=== PATIENT | female | born 1935 | race Caucasian/White ===

== ENCOUNTER 2018-02-02 16:41 | Emergency (ER) | payer BC, MEDICARE, OTHER ==
--- OUTSIDE RECORDS SUMMARY | 2018-02-02 17:17 | XMS REPORT ---
:1935 External Reference #:[id number] Author Organization [facility] Address [address] [place] [address] Phone [phone] Care Team Providers Name Role Phone Ruben Sharpe M.D. Care Team Information Speed Operator Unavailable Vicente Meza M.D. Primary Care Physician Unavailable Payers Type Date Identification Numbers Payment Provider Subscriber Medicare Primary Effective: Policy Number: Medicare Part B Federica Saldana 2002 [id number] PayID: [id number] [place] [address] Medinew bavaria Part B Policy Number: [id number] [facility] Alan Saldana PayID: [id number] [address] [place] [address] Problems Date Description Provider Status Onset: 05/05/2015 End-stage renal disease Vincent Petty M.D. Active Onset: 05/05/2015 Coronary arteriosclerosis Vincent Petty M.D. Active Onset: 05/05/2015 Congestive heart failure Vincent Petty M.D. Active Onset: 05/05/2015 Anemia Vincent Petty M.D. Active Onset: 05/05/2015 Atrial fibrillation Vincent Petty M.D. Active Onset: 05/05/2015 Essential hypertension Vincent Petty M.D. Active Onset: 05/06/2015 End-stage renal disease Active Family History Date Family Member(s) Problem(s) Comments : (age 93 Years) Father due to Bladder Cancer : (age 95 Years) Mother due to Congestive Heart Failure Social History Type Date Description Comments ETOH Use Rarely consumes alcohol Smoking 09/21/2017 Patient has never smoked Allergies, Adverse Reactions, Alerts Date Description Reaction Status Severity Comments 05/05/2015 Penicillins Urticaria active 05/05/2015 Tape skin reaction active 05/05/2015 Calcium Channel Blockers edema active 05/05/2015 Procardia Edema active 05/05/2015 Iodine Urticaria, Hives active 05/06/2015 Shellfish-derived Products Urticaria active Medications Medication Date Status Form Strength Qnty SIG Indications Ordering Provider Benadryl Active Capsules 25mg 2caps 50mg by Jing Vazquez M.D. 01/24/18 @ 8am Isabella-Jacinto Active Tablets every day Vincent Petty M.D. Prednisone Active Tablets 50mg 3tabs 50mg Jing Bhagat 01/23/18 @ Emely Vazquez 8:00pm 50mg on 01/24/18 @ 2:00am 50mg on 01/24/18 @ 8:00am Sensipar Active Tablets 30mg 2 tabs qd Unknown 000 Warfarin Active Tablets 2.5mg as directed Derrick, Sodium 000 Emely Zhang Renvela Active Tablets 800mg 2 tablets Unknown 000 three times a day Midodrine HCL Active Tablets 5mg 3 X weekly Sharpe, 000 Emely Miranda Vitamin D3 Active 3 x weekly Unknown 000 at dialysis Benadryl Hx Capsules 25mg 2caps 50mg by Jing Mcmullen 017 - zahra Vazquez M.D. 08/09/17 @ 018 0830 Benadryl Hx Capsules 25mg 2caps 50mg by Vincent Bhagat - zahra Petty, 03/11/16 @ Emely 018 11:45am Torsemide Hx Tablets 20mg qd Unknown 000 - 016 Metoprolol Hx Tablets 25mg q hs Unknown Tartrate 000 - 016 Calcitriol Hx Capsules 0.25mcg tues/thurs Sharpe, 000 - Ruben, MAfshan 016 Vitamin D Hx Capsules [id number] q week Unknown (Ergocalcifer 000 - ol) 016 Vital Signs Date Vital Result Comment 01/24/2018 BP Systolic Left Arm 113 mmHg BP Diastolic Left Arm 71 mmHg Heart Rate 52 /min Body Temperature 97.0 F Respiratory Rate 16 /min Height 62 inches 5'2" Weight 171.50 lb Weight in kg's 77.8 O2 % BldC Oximetry 98 % BMI (Body Mass Index) 31.4 kg/m2 Pain Level 0 01/10/2018 BP Systolic Left Arm 95 mmHg BP Diastolic Left Arm 69 mmHg Heart Rate 55 /min Body Temperature 97.0 F Respiratory Rate 16 /min Height 62 inches 5'2" Weight 168.00 lb Weight in kg's 76.205 O2 % BldC Oximetry 99 % BMI (Body Mass Index) 30.7 kg/m2 Pain Level 0 11/29/2017 BP Systolic Left Arm 100 mmHg BP Diastolic Left Arm 66 mmHg Heart Rate 64 /min Height 62 inches 5'2" Weight 169.00 lb Weight in kg's 76.658 BMI (Body Mass Index) 30.9 kg/m2 09/21/2017 BP Systolic Left Arm 110 mmHg BP Diastolic Left Arm 70 mmHg Heart Rate 68 /min Height 62 inches 5'2" Weight 167.56 lb Weight in kg's 76 BMI (Body Mass Index) 30.6 kg/m2 08/09/2017 BP Systolic Left Arm 123 mmHg BP Diastolic Left Arm 70 mmHg Heart Rate 65 /min Body Temperature 97.0 F Respiratory Rate 16 /min Height 62 inches 5'2" Weight 169.31 lb Weight in kg's 76.8 O2 % BldC Oximetry 100 % BMI (Body Mass Index) 31.0 kg/m2 Pain Level 0 07/12/2017 BP Systolic Left Arm 107 mmHg BP Diastolic Left Arm 70 mmHg Heart Rate 66 /min Body Temperature 97.0 F Respiratory Rate 16 /min Height 62 inches 5'2" Weight 168.62 lb Weight in kg's 76.5 O2 % BldC Oximetry 97 % BMI (Body Mass Index) 30.8 kg/m2 Pain Level 0 06/28/2017 BP Systolic Left Arm 100 mmHg BP Diastolic Left Arm 60 mmHg Heart Rate 68 /min Height 62 inches 5'2" Weight 169.75 lb Weight in kg's 77 BMI (Body Mass Index) 31.0 kg/m2 06/16/2017 BP Systolic Left Arm 120 mmHg BP Diastolic Left Arm 70 mmHg Heart Rate 72 /min Height 62 inches 5'2" Weight 167.56 lb Weight in kg's 76 BMI (Body Mass Index) 30.6 kg/m2 06/03/2017 BP Systolic Left Arm 100 mmHg BP Diastolic Left Arm 70 mmHg Heart Rate 72 /min Height 62 inches 5'2" Weight 168.44 lb Weight in kg's 76.4 BMI (Body Mass Index) 30.8 kg/m2 04/21/2017 BP Systolic Left Arm 120 mmHg BP Diastolic Left Arm 74 mmHg Heart Rate 61 /min Body Temperature 97.0 F Respiratory Rate 16 /min Height 62 inches 5'2" Weight 168.62 lb Weight in kg's 76.5 O2 % BldC Oximetry 100 % BMI (Body Mass Index) 30.8 kg/m2 Pain Level 0 04/12/2017 BP Systolic Left Arm 91 mmHg BP Diastolic Left Arm 65 mmHg Heart Rate 60 /min Body Temperature 97.0 F Respiratory Rate 16 /min Height 62 inches 5'2" Weight 168.62 lb Weight in kg's 76.488 O2 % BldC Oximetry 95 % BMI (Body Mass Index) 30.8 kg/m2 Pain Level 0 12/07/2016 BP Systolic Left Arm 99 mmHg BP Diastolic Left Arm 64 mmHg Heart Rate 54 /min Body Temperature 96.0 F Respiratory Rate 12 /min Height 62 inches 5'2" Weight 169.75 lb Weight in kg's 76.999 O2 % BldC Oximetry 98 % BMI (Body Mass Index) 31.0 kg/m2 Pain Level 0 09/21/2016 Heart Rate 59 /min Body Temperature 97.2 F Respiratory Rate 16 /min Height 62 inches 5'2" Weight 169.75 lb Weight in kg's 77 O2 % BldC Oximetry 99 % BMI (Body Mass Index) 31.0 kg/m2 Pain Level 0 06/17/2016 BP Systolic Left Arm 141 mmHg BP Diastolic Left Arm 83 mmHg Heart Rate 65 /min Body Temperature 97.0 F Respiratory Rate 16 /min Height 62 inches 5'2" Weight 172.81 lb Weight in kg's 78.4 O2 % BldC Oximetry 100 % BMI (Body Mass Index) 31.6 kg/m2 Pain Level 0 03/11/2016 BP Systolic Left Arm 124 mmHg BP Diastolic Left Arm 78 mmHg Heart Rate 66 /min Body Temperature 97.0 F Respiratory Rate 15 /min Height 62 inches 5'2" Weight 165.38 lb Weight in kg's 75 O2 % BldC Oximetry 99 % BMI (Body Mass Index) 30.2 kg/m2 Pain Level 0 12/04/2015 BP Systolic Left Arm 122 mmHg BP Diastolic Left Arm 71 mmHg Heart Rate 70 /min Body Temperature 96.0 F Respiratory Rate 16 /min Height 62 inches 5'2" Weight 167.56 lb Weight in kg's 76 O2 % BldC Oximetry 96 % BMI (Body Mass Index) 30.6 kg/m2 Pain Level 0 11/13/2015 BP Systolic Left Arm 122 mmHg BP Diastolic Left Arm 60 mmHg Heart Rate 67 /min Body Temperature 96.0 F Respiratory Rate 14 /min Height 62 inches 5'2" Weight 165.00 lb Weight in kg's 74.844 O2 % BldC Oximetry 98 % BMI (Body Mass Index) 30.2 kg/m2 Pain Level 0 10/30/2015 BP Systolic Left Arm 144 mmHg BP Diastolic Left Arm 82 mmHg Heart Rate 67 /min Body Temperature 97.5 F Respiratory Rate 15 /min Height 62 inches 5'2" Weight 167.00 lb Weight in kg's 75.751 O2 % BldC Oximetry 100 % BMI (Body Mass Index) 30.5 kg/m2 Pain Level 0 10/02/2015 BP Systolic Left Arm 128 mmHg BP Diastolic Left Arm 75 mmHg Heart Rate 79 /min Body Temperature 97.0 F Respiratory Rate 14 /min Height 62 inches 5'2" Weight 167.00 lb Weight in kg's 75.751 O2 % BldC Oximetry 96 % BMI (Body Mass Index) 30.5 kg/m2 Pain Level 0 09/11/2015 BP Systolic Left Arm 131 mmHg BP Diastolic Left Arm 81 mmHg Heart Rate 66 /min Body Temperature 97.0 F Respiratory Rate 16 /min Height 62 inches 5'2" Weight 167.56 lb Weight in kg's 76 O2 % BldC Oximetry 99 % BMI (Body Mass Index) 30.6 kg/m2 Pain Level 0 07/31/2015 BP Systolic Left Arm 148 mmHg BP Diastolic Left Arm 82 mmHg Heart Rate 58 /min Body Temperature 95.0 F Respiratory Rate 18 /min Height 62 inches 5'2" Weight 169.75 lb Weight in kg's 77 O2 % BldC Oximetry 100 % BMI (Body Mass Index) 31.0 kg/m2 Pain Level 0 07/08/2015 BP Systolic Left Arm 145 mmHg BP Diastolic Left Arm 84 mmHg Heart Rate 57 /min Body Temperature 96.7 F Respiratory Rate 16 /min Height 62 inches 5'2" Weight 169.75 lb Weight in kg's 77 O2 % BldC Oximetry 98 % BMI (Body Mass Index) 31.0 kg/m2 Pain Level 0 06/05/2015 BP Systolic Left Arm 148 mmHg BP Diastolic Left Arm 86 mmHg Heart Rate 58 /min Body Temperature 96.6 F Respiratory Rate 16 /min Height 62 inches 5'2" Weight 171.00 lb Weight in kg's 77.566 O2 % BldC Oximetry 100 % BMI (Body Mass Index) 31.3 kg/m2 Pain Level 0 05/06/2015 BP Systolic Right Arm 124 mmHg BP Diastolic Right Arm 60 mmHg BP Systolic Left Arm 130 mmHg BP Diastolic Left Arm 64 mmHg Heart Rate 76 /min Height 62 inches 5'2" Weight 174.19 lb Weight in kg's 79 BMI (Body Mass Index) 31.9 kg/m2 Results Test Date Test Result H/L Range Note Poct glucose 10/25/2017 Glucose, Poc 70 mg/dL 70 - 99 Hematocrit 10/25/2017 Hematocrit 36.1 % 36.0 - 47.0 Potassium 10/25/2017 Potassium 4.4 mmol/L 3.6 - 5.2 Protime-Inr 10/25/2017 Inr 1.52 1 Protime 15.9 s High 9.2 - 11.9 Protime-Inr 05/31/2017 Inr 1.36 1 Protime 14.1 s High 9.2 - 11.9 Poc Potassium 05/31/2017 Poc Potassium 4.7 Mmol/L 3.6 - 5.2 Poct Hematocrit 05/31/2017 Poc Hematocrit 43 % 36.0 - 47.0 Procedures Date CPT Code Description Status 10/25/2017 14335 Revise Arteriovenous Fistula Completed 05/31/2017 63256 Arteriovenous Fistula Nonautogenous Graft Completed 06/19/2015 44675 Anastomosis Arteriovenous Direct Any Site Completed 05/29/2015 28745 Anastomosis Arteriovenous Direct Any Site Completed 03/31/2015 29955 Endoscopic Peritoneum Completed Encounters Type Date Location Provider CPT E/M Dx Office Visit 09/21/2017 9:15a Main Office Gonzalo Horton M.D. 60099 N18.6 T82.898D Office Visit 05/06/2015 12:45p Main Office Vincent Petty M.D. 90677 N18.6 K66.0 Plan of Care 11/29/2017 - Gonzalo Horton M.D.N18.6 End stage renal diseaseFollow up:prn
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
[2018-02-02] MEDS ORDERED: HYDROcodone/ACETAMIN 5-325 MG* 1 TAB PO ONE ×2 (19:01→21:23)
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
--- NOTE | 2018-02-02 20:02 | RAD ---
EXAM: CT Abdomen and Pelvis Without Intravenous Contrast CLINICAL HISTORY: 82 years old, female; Injury or trauma; Fall; Initial encounter; Abrasion TECHNIQUE: Axial computed tomography images of the abdomen and pelvis without intravenous contrast. All CT scans at this facility use at least one of these dose optimization techniques: automated exposure control; mA and/or kV adjustment per patient size (includes targeted exams where dose is matched to clinical indication); or iterative reconstruction. Coronal and sagittal reformatted images were created and reviewed. COMPARISON: No relevant prior studies available. FINDINGS: Lung bases: Unremarkable. No mass. No consolidation. ABDOMEN: Liver: Unremarkable. Gallbladder and bile ducts: There are likely postoperative changes of cholecystectomy. No ductal dilation. Pancreas: Unremarkable. No ductal dilation. Spleen: Unremarkable. No splenomegaly. Adrenals: Unremarkable. No mass. Kidneys and ureters: There is bilateral renal atrophy. There is a 9 mm low attenuation lesion of the right kidney that is too small to characterize. No obstructing stones. No hydronephrosis. Stomach and bowel: There is colonic diverticulosis without evidence for acute diverticulitis. There are postoperative changes involving the bowel. No obstruction. PELVIS: Appendix: The appendix is not visible. Bladder: Unremarkable. No stones. Reproductive: There are postoperative changes of hysterectomy. ABDOMEN and PELVIS: Intraperitoneal space: Unremarkable. No free air. No significant fluid collection. Bones/joints: There is diffuse osteopenia and there are degenerative changes of the spine. There is grade one anterolisthesis at L4-5, likely degenerative. No acute fracture. No dislocation. Soft tissues: Unremarkable. Vasculature: There are atherosclerotic aortic and iliac and femoral artery calcifications and There are calcified phleboliths in the pelvis. No abdominal aortic aneurysm. Lymph nodes: Unremarkable. No enlarged lymph nodes. Other findings: Findings in the lower thorax are described on the CT chest dictation of the same day. There is a ventral surgical mesh of the abdomen and pelvis. IMPRESSION: 1. There is colonic diverticulosis without evidence for acute diverticulitis. 2. No acute traumatic CT pathology of the abdomen or pelvis. EXAM: CT Chest Without Intravenous Contrast CLINICAL HISTORY: 82 years old, female; Injury or trauma; Fall; Initial encounter; Abrasion TECHNIQUE: Axial computed tomography images of the chest without intravenous contrast. All CT scans at this facility use at least one of these dose optimization techniques: automated exposure control; mA and/or kV adjustment per patient size (includes targeted exams where dose is matched to clinical indication); or iterative reconstruction. Coronal and sagittal reformatted images were created and reviewed. COMPARISON: A/P WO CT ABD/PEL W/O 12/30/2015 10:15 AM FINDINGS: Lungs: There is mild bibasilar atelectatic change or scarring. Pleural space: Unremarkable. No pneumothorax. No significant effusion. Heart: Unremarkable. No cardiomegaly. No significant pericardial effusion. Bones/joints: There is diffuse osteopenia and there are degenerative changes of the spine and glenohumeral joints. There is mild dextroscoliosis in the thoracic spine. There is mild thoracic kyphosis. No acute fracture. No dislocation. Soft tissues: Unremarkable. Vasculature: There are atherosclerotic aortic and coronary artery calcifications. No thoracic aortic aneurysm. Lymph nodes: Unremarkable. No enlarged lymph nodes. Intraperitoneal space: Findings in the upper abdomen are described in the CT abdomen and pelvis dictation of the same day. IMPRESSION: No acute traumatic CT pathology of the chest.
[2018-02-02] MEDS ORDERED: Cephalexin CAP* 500 MG PO ONE (21:20)
[2018-02-02 21:29] VITALS: BP 106/63
--- NOTE | 2018-02-03 07:37 | RAD ---
INDICATION: Right foot injury. TECHNIQUE: 3 views of the right foot were obtained. FINDINGS: There is diffuse soft tissue swelling. There is an oblique slightly displaced intra-articular fracture present at the base of the first metatarsal. There is a transverse nondisplaced fracture through the proximal metaphysis of the second metatarsal. There is also a transverse impacted fracture of the distal metaphysis of the second metatarsal. The results of this exam were called to the emergency department charge nurse Shayne. IMPRESSION: THERE ARE FRACTURES OF THE PROXIMAL FIRST AND SECOND METATARSALS AND OF THE DISTAL SECOND METATARSAL. R1
--- NOTE | 2018-02-03 07:39 | RAD ---
INDICATION: Bilateral rib injury. TECHNIQUE: 5 views of both ribs were obtained. FINDINGS: There is a nondisplaced fracture of the lateral left seventh rib. The results of this exam were called to the emergency department charge nurse Shayne. IMPRESSION: NONDISPLACED FRACTURE OF THE LEFT LATERAL SEVENTH RIB. R1
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
== END 2018-02-02 21:29 | disposition home or self-care (01) ==
LOC: ED 16:41
DX: S22.32XA Fracture of one rib, left side, initial encounter for closed fracture (principal); S01.81XA Laceration without foreign body of other part of head, initial encounter; W19.XXXA Unspecified fall, initial encounter; Y92.9 Unspecified place or not applicable
CPT/HCPCS: 70450; 70486; 71110; 71250; 74176; 99284; A9270-GY; Q9967

== ENCOUNTER 2018-02-03 11:41 | Emergency (ER) | payer BC, MEDICARE, OTHER ==
[2018-02-03 13:09] VITALS: BP 101/61
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
== END 2018-02-03 13:07 | disposition home or self-care (01) ==
LOC: ED 11:41
DX: S92.901A Unspecified fracture of right foot, initial encounter for closed fracture (principal); Z79.01 Long term (current) use of anticoagulants; I48.91 Unspecified atrial fibrillation; I10 Essential (primary) hypertension; V09.9XXA Pedestrian injured in unspecified transport accident, initial encounter; Y92.9 Unspecified place or not applicable; Z99.2 Dependence on renal dialysis; Z85.42 Personal history of malignant neoplasm of other parts of uterus
CPT/HCPCS: 99281